=== PATIENT | female | born 1965 | race Hispanic/Latino ===

== ENCOUNTER 2017-10-10 14:40 | Emergency (ER) | payer OTHER, BC ==
[2017-10-10 14:40] VITALS: BMI 31.6
[2017-10-10 14:47] VITALS: PULSE 88; RESP 16; TEMP 98.3; O2SAT 100
--- NOTE | 2017-10-10 15:25 | ED PDOC ---
Lower Extremity Pain/Injury Time Seen by Provider: 10/10/17 14:56 Chief Complaint (Nursing): Lower Extremity Problem/Injury Chief Complaint (Provider): Right knee injury History Per: Patient History/Exam Limitations: no limitations Onset/Duration Of Symptoms: Hrs (x3) Current Symptoms Are (Timing): Still Present Additional Complaint(s): 51 year old female with a past medical history of hypertension, gall bladder disease, and diverticulitis presents to the ER for evaluation of abrasion to her right knee s/p fall at work approximately 3 hours ago. Patient was at work, tripped, and hit her right knee on the sidewalk. She states that she took Ibuprofen for pain to the right knee 2 hours ago. She denies any head injury or loss of consciousness. Patient offers no other medical complaints at this time. PMD: non [facility] providerAshlie Past Medical History Reviewed: Historical Data, Nursing Documentation, Vital Signs Vital Signs: Last Vital Signs Temp 98.3 F 10/10/17 14:43 Pulse 88 10/10/17 14:43 Resp 16 10/10/17 14:43 BP 180/85 H 10/10/17 14:43 Pulse Ox 100 10/10/17 14:43 - Medical History PMH: Diverticulitis, Gall Bladder Disease (CHOLEYCYSTECTOMY), HTN Denies: Chronic Kidney Disease - Surgical History Surgical History: Cholecystectomy Denies: Pacemaker - Family History Family History: States: Unknown Family Hx - Social History Current smoker - smoking cessation education provided: Yes (occasional) Alcohol: None Drugs: Denies - Home Medications Home Medications: Ambulatory Orders Medication Instructions Recorded amLODIPine [Norvasc] 5 mg PO DAILY 09/23/16 Amoxicillin/Clavulanate [Augmentin 1 tab PO BID #14 tab 09/26/16 875 MG-125 MG] Metronidazole [Flagyl] 500 mg PO Q8 #21 tablet 09/26/16 traMADol [Ultram] 50 mg PO Q6H PRN #10 tab 10/10/17 - Allergies Allergies/Adverse Reactions: Allergies Allergy/AdvReac Type Severity Reaction Status Date / Time erythromycin base Allergy RASH Verified 09/23/16 18:54 Review of Systems ROS Statement: Except As Marked, All Systems Reviewed And Found Negative Musculoskeletal: Positive for: Leg Pain (right knee pain) Neurological: Negative for: Other (loss of consciousness, head injury) Physical Exam - Reviewed Nursing Documentation Reviewed: Yes Vital Signs Reviewed: Yes - Physical Exam Appears: Positive for: Non-toxic, No Acute Distress Head Exam: Positive for: ATRAUMATIC, NORMAL INSPECTION, NORMOCEPHALIC Skin: Positive for: Normal Color, Warm, Dry Eye Exam: Positive for: Normal appearance Neck: Positive for: Normal, Painless ROM Respiratory: Positive for: Normal Breath Sounds. Negative for: Respiratory Distress Extremity: Positive for: Normal ROM, Other ((+) abrasion to right knee, (-) ecchymosis and erythema). Negative for: Deformity (to right knee), Swelling ( to right knee) Neurologic/Psych: Positive for: Alert, Oriented - ECG O2 Sat by Pulse Oximetry: 100 (RA) Pulse Ox Interpretation: Normal Medical Decision Making Medical Decision Making: Time: 15:04 Impression: 51 year old female with abrasion to right knee Plan: --X-Ray Knee 15:53 -- CT Lower Extremity X-Ray Knee: FINDINGS: BONES: Normal. No fracture. JOINTS: There are very tiny posterior superior and posterior inferior patellar osteophyte formation. Tiny early osteophytes arising from the medial and lateral tibial plateau suspected. . JOINT EFFUSION: Suspect trace joint effusion. OTHER FINDINGS: None. IMPRESSION: No evidence of acute displaced fracture nor dislocation. Minimal early DJD. Suspect trace joint effusion. CT Lower Extremity: FINDINGS: BONES: No evidence of acute displaced fracture nor dislocation. The osseous structures appear intact. Note is made of slight cortical irregularity of the proximal lateral margin of the fibular metaphysis felt to represent an anatomic variation. Joint spaces relatively preserved. No significant osteoarthritis. Trace joint effusion is felt be present. IMPRESSION: No evidence of acute displaced fracture nor dislocation. Trace joint effusion. Scribe Attestation: Documented by Madisyn Monroy, acting as a scribe for Tran Heart PA-C Provider Scribe Attestation: All medical record entries made by the Scribe were at my direction and personally dictated by me. I have reviewed the chart and agree that the record accurately reflects my personal performance of the history, physical exam, medical decision making, and the department course for this patient. I have also personally directed, reviewed, and agree with the discharge instructions and disposition. Disposition - Clinical Impression Clinical Impression: Knee injury - Patient ED Disposition Is Patient to be Admitted: No Counseled Patient/Family Regarding: Diagnosis, Need For Followup - Disposition Referrals: Eladio Zuniga III, MD [Staff Provider] - Disposition: Routine/Home Disposition Time: 17:16 Condition: GOOD Prescriptions: traMADol [Ultram] 50 mg PO Q6H PRN #10 tab PRN Reason: Pain Instructions: Knee Pain (DC) Forms: [facility] (Khmer)
--- NOTE | 2017-10-10 16:19 | RAD ---
PROCEDURE: Right Knee Radiographs. HISTORY: knee pain after fall COMPARISON: None. FINDINGS: BONES: Normal. No fracture. JOINTS: There are very tiny posterior superior and posterior inferior patellar osteophyte formation. Tiny early osteophytes arising from the medial and lateral tibial plateau suspected. . JOINT EFFUSION: Suspect trace joint effusion. OTHER FINDINGS: None. IMPRESSION: No evidence of acute displaced fracture nor dislocation. Minimal early DJD. Suspect trace joint effusion.
--- NOTE | 2017-10-10 16:54 | CT ---
PROCEDURE: CT of the right knee dated 10/10/2017 HISTORY: Status post fall with right knee pain. COMPARISON: Comparison made prior right knee radiographs obtained earlier same day TECHNIQUE: Contiguous helical/transaxial images of the right hip were obtained. Coronal and sagittal reformats were generated. This CT exam was performed using one or more of the following dose reduction techniques: Automated exposure control, adjustment of the mA and/or kV according to patient size, and/or use of iterative reconstruction technique. Radiation dose. Total DLP = 492.92 mGy-cm FINDINGS: BONES: No evidence of acute displaced fracture nor dislocation. The osseous structures appear intact. Note is made of slight cortical irregularity of the proximal lateral margin of the fibular metaphysis felt to represent an anatomic variation. Joint spaces relatively preserved. No significant osteoarthritis. Trace joint effusion is felt be present. IMPRESSION: No evidence of acute displaced fracture nor dislocation. Trace joint effusion.
[2017-10-10 17:24] VITALS: BP 162/93
== END 2017-10-10 17:25 | disposition home or self-care (01) ==
LOC: H.ER 14:40
DX: S80.211A Abrasion, right knee, initial encounter (principal); W01.198A Fall on same level from slipping, tripping and stumbling with subsequent striking against other object, initial encounter; Y99.0 Civilian activity done for income or pay